=== PATIENT | male | born 1995 | race Caucasian/White ===

== ENCOUNTER 2018-10-14 17:52 | Emergency (ER) | payer OTHER ==
[2018-10-14] MEDS ORDERED: OXYCODONE/APAP 5/325 TAB ONE (18:16)
[2018-10-14] MEDS ORDERED: OXYCODONE/APAP 5/325 TAB PO ONE (18:17)
--- NOTE | 2018-10-14 18:22 | EDPHY ---
General Time Seen by Provider: 10/14/18 18:21 Narrative: CLINICAL IMPRESSION: Open fracture right 4th distal phalanx, complex laceration ASSESSMENT/PLAN: Patient is a 23-year-old male with no significant medical history who presents to the emergency department after sustaining a crush injury to his right distal ring finger. Patient is uncomfortable appearing however not toxic-appearing. Physical examination reveals complex laceration of the right 4th distal phalanx isolated to the distal pad, minimal separation of the nail plate along the medial distal aspect. X-ray revealed chip avulsion fracture of the distal right phalanx. There is no evidence of subungual hematoma, neurovascular compromise or foreign body. The wound was not contaminated, tetanus status was up-to-date. The wound was copiously irrigated and then repaired as discussed in the procedure note, the patient tolerated this well. Local wound care instructions discussed with the patient, he understands that he will need to follow up with a hand specialist and will call 1st thing Wednesday morning. History of physical examination is consistent with open fracture of the right 4th distal phalanx, complex laceration. Patient was given his 1st dose of Keflex in light of open fracture, he will continue for the next 7 days. The wound was dressed and splinted. Return precautions discussed- he will return for increased pain, signs of infection, fever, vomiting, if the wound opens or for any other concerns. Patient verbalizes understanding and is in agreement with plan. DIFFERENTIAL DIAGNOSIS: includes but not limited to laceration of tendon or vascular structure, underlying fracture, laceration with retained FB ED PROCEDURES: Laceration Repair Verbal consent obtained by patient. Risks discussed, including but not limited to infection, pain, retained foreign body, need for additional repair, poor cosmetic result, tendon damage, nerve damage, poor wound healing, vascular damage. Alternatives to repair discussed. [place] protocol used to establish correct patient, procedure, equipment, telecommunications support, and site. Anesthesia obtained by nerve block. Anesthetized with 0.5% bupivacaine and 1% lidocaine. Laceration location right 4th distal phalanx , length 3 cm, depth 8 mm, Repair type complex. The wound is macerated and gaping. The nail plate along the distal medial aspect is mildly , no nail bed or germinal matrix injury. No subungual hematoma. Patient was prepped and draped in usual sterile fashion. Hemostasis achieved with direct pressure. Wound explored through full range of motion and entire depth of wound probed and visualized with gloved finger. No findings to suggest nerve damage, tendon damage, vascular damage, foreign body, or contamination. Area was cleansed with Shur-Clens and irrigated with sterile saline as per protocol. No foreign body or material removed. Repair method 5.0 Prolene, simple interrupted. 13 sutures placed. Well aligned, closely approximated. wound was dressed with antibiotic ointment, sterile dressing and splint. Patient tolerated well with no immediate complications. Wound care: Clean and dry x 24 hours, gently clean with soap and water, cover with topical antibiotic ointment/bandage. Suture/Staple removal: 7 to 10 Days or as recommended by hand specialist. CHIEF COMPLAINT: Laceration, crush injury HPI: Patient is a 23-year-old male with no significant medical history presents to the emergency department after sustaining a crush injury to his right distal ring finger. Patient reports he was at the gym, he accidentally smashed his right ring finger between two dumbbells. He immediately experienced bleeding, noticed large gaping wound, applied pressure and came to the emergency department. Patient denies any numbness or tingling of the digit, complains of significant pain at that site only. Denies any other injury or complaint. Patient is right handed, he is up-to-date on his tetanus status. PAST MEDICAL HISTORY: Denies Pertinent Past Surgical History: Denies Social History: Occasional smoking, denies illicit drug use REVIEW OF SYSTEMS: All other systems negative Constitutional: No fever, no chills Musculoskeletal: Right ring finger deformity. Skin: Finger laceration Neurological: No sensory loss or weakness. PHYSICAL EXAM: General Appearance: Alert, uncomfortable appearing however not toxic-appearing. Neurological: Alert and oriented, neurological exam is grossly normal with no focal deficit Skin: Complex laceration of the 4th distal phalanx, 3 cm in length, macerated and gaping. Nail slightly elevated from medial distal aspect, no evidence of subungual hematoma or germinal matrix injury. Upper Extremities: Left upper extremity is non tender with full range of motion , unremarkable. Intact distal pulses, Full range of motion intact, no tenderness, no ecchymosis or edema. Right upper extremity with gaping wound of the right distal 4th phalanx, palmar aspect. Interphalangeal joints were tested independently with full strength and full range of motion. Two point discrimination is intact distally. Lower Extremities: Intact distal pulses, No edema, No tenderness, No cyanosis, full range of motion intact, No calf tenderness bilaterally. MEDICAL DECISION MAKING: Patient was seen independently. Secondary supervising physician at time of evaluation was Dr. Lnog, he also evaluated this patient. Diagnosis: Right open 4th distal phalanx fracture, complex laceration. New, requires workup Summary: See assessment and plan for summary of ED visit Clinical lab tests: Not applicable. Independent visualization of images, tracing, or specimens yes. Decision to obtain medical records or history from someone other than the patient: No Review / Summarize previous medical records: Yes Discussed patient with another provider: Yes, Dr. Long - Diagnostics Imaging Results: Imaging Impressions Hand X-Ray 10/14/18 18:08 Impression: Chip avulsion, distal phalanx, right fourth finger. - History Smoking Status: Current some day smoker - Objective Vital Signs: Initial Vital Signs Temperature (C) 36.7 C 10/14/18 18:05 Heart Rate 103 H 10/14/18 18:05 Respiratory Rate 20 10/14/18 18:05 O2 Sat (%) 95 10/14/18 18:05 O2 Delivery Mode Room Air Allergies/Adverse Reactions: No Known Allergies Allergy (Unverified 10/14/18 18:05) Home Medications: Medication Instructions Recorded Cephalexin [Keflex (*)] 500 mg PO QID 7 Days cap 10/14/18 Medications Given: Discontinued Medications Cephalexin HCl (Keflex) 500 mg PO EDNOW ONE PRN Reason: Protocol Stop: 10/14/18 18:43 Last Admin: 10/14/18 18:50 Dose: 500 mg Oxycodone/Acetaminophen (Percocet 5/325) 2 tab PO EDNOW ONE Stop: 10/14/18 18:18 Last Admin: 10/14/18 18:18 Dose: 2 tab Departure - Departure Disposition: Home, Routine, Self-Care Clinical Impression: Open fracture of finger of right hand Condition: Good Instructions: Crush Injury (ED) Additional Instructions: DISCHARGE INSTRUCTIONS FROM YOUR DOCTOR Thank you for visiting our emergency department today. Please keep in mind that discharge from the emergency department does not mean that there is nothing wrong - it simply means that we have not identified an emergency condition that requires further evaluation or treatment in the hospital. You should always plan to follow up with primary care for re-evaluation of your condition in the next 2-3 days. Keep wound clean and dry for 24 hours. Then remove dressing, clean at least twice daily or when soiled with soap and water, apply antibiotic ointment and dressing. Do not soak the wound while the stitches are in place. Elevate hand as much as possible for the next 24 hours to decrease the swelling and pain. Wear the splint to immobilize the finger until you follow up with Orthopedic surgery as you do have with considered an open fracture. Continue Keflex for the next 7 days. Anticipate suture removal in 10-14 days, per hand surgeon. Tylenol every 4-6 hours as directed as needed for pain. Do not exceed 4000 mg in 24 hours. Ibuprofen as directed every 6-8 hours with food as needed for pain. Stop for stomach upset. Do not exceed 2400 mg in 24 hours. Continue your regular medications as prescribed. As discussed the laceration was not deep enough to visualize the tendon today. It is unlikely a tendon injury is present and your tendon function is currently intact. However, if at any time, you feel a pop and have difficulty bending or straightening the finger, you should seek re-evaluation from a hand specialist urgently. Return for signs of wound infection ie: redness, swelling, drainage, foul odor, red streaks, fever, chills, pain, bleeding, if the stitches pop, if the wound opens, for numbness, tingling, weakness, discoloration of the finger, coolness of the finger, inability to move or bend the finger or for any other new, worsening or People present with illnesses and injuries in different ways, and it is always possible that we have missed something. You may always return for re-evaluation if symptoms worsen or if they are not improving or if you develop new/different symptoms. Again, thank you for choosing our emergency department. We hope that you feel better. Referrals: NONE *PRIMARY CARE P,. [Primary Care Provider] - As per Instructions Pablo Kovacs MD [Medical Doctor] - 2-3 days, call for appt. (Please call 1st thing Wednesday morning to schedule a follow-up appointment with the hand specialist) Prescriptions: Cephalexin [Keflex (*)] 500 mg PO QID 7 Days cap
[2018-10-14] MEDS ORDERED: CEPHALEXIN 500 MG CAP PO ONE (18:42)
[2018-10-14] MEDS ORDERED: HYDROCOD/APAP 5/325 PREPACK#6 BTL TAKEHOME ONE (19:34)
[2018-10-14 20:13] VITALS: BP 140/85
== END 2018-10-14 20:11 | disposition home or self-care (01) ==
PROC: 0JQJ3ZZ Repair Right Hand Subcutaneous Tissue and Fascia, Percutaneous Approach (ICD-10-PCS; principal; 2018-10-14)
DX: S62.634A Displaced fracture of distal phalanx of right ring finger, initial encounter for closed fracture (principal); W23.0XXA Caught, crushed, jammed, or pinched between moving objects, initial encounter; Y93.B9 Activity, other involving muscle strengthening exercises; Y92.39 Other specified sports and athletic area as the place of occurrence of the external cause